=== PATIENT | male | born 1960 | race Caucasian/White ===

== ENCOUNTER 2017-05-21 10:39 | Emergency (ER) | payer MEDICAID, SELFPAY ==
[2017-05-21 10:41] VITALS: BP 118/67; PULSE 85; RESP 16; TEMP 36.4; O2SAT 97; BMI 24.2
--- NOTE | 2017-05-21 11:40 | RAD_ITS ---
STUDY: X-RAY - RIGHT FOOT CLINICAL: Patient thinks there is a foreign body in the foot for a month. TECHNIQUE: 3 view(s) of the foot. COMPARISON: None. FINDINGS: Normal talus, calcaneus, and tarsal bones. Normal visualized subtalar, talonavicular, calcaneocuboid, tarsal and tarsometatarsal articulations. Normal metatarsi. 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 Normal tibial and fibular sesamoid bones. Normal interphalangeal joint of the great toe. Normal phalanges of the great toe. Normal second through fifth metatarsophalangeal joints. Normal interphalangeal joints and phalanges of the lesser toes. There is a thin metallic foreign body at the plantar aspect of the base of the third proximal phalanx. The foreign body measures approximately 1 cm in length. RAD/Foot min 3 Views IMPRESSION: Foreign body. Arthrosis of the first metatarsophalangeal joint. Electronically Signed: Akin Peña MD at 12:13 EST Tel , Service support ,
[2017-05-21] MEDS: Lidocaine/Epi/Tetracaine 50 ML 1 APPLIC TOPICAL (13:57)
[2017-05-21 15:20] VITALS: BP 120/70; PULSE 85; RESP 14; O2SAT 99
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
[2017-05-21 16:46] VITALS: BP 132/70; PULSE 70; RESP 14; O2SAT 99
== END 2017-05-21 16:47 | disposition home or self-care (01) ==
PROVIDERS: Emergency Provider Emergency Medicine
DX: M79.5 Residual foreign body in soft tissue (principal); Z72.0 Tobacco use
CPT/HCPCS: 73630; 99282

== ENCOUNTER 2019-01-20 17:56 | Emergency (ER) | payer MEDICAID, SELFPAY ==
[2019-01-20 18:02] VITALS: BP 140/85; PULSE 102; RESP 12; TEMP 37; O2SAT 92; BMI 20.3
[2019-01-20] MEDS: Naloxone 2 MG/2 ML Syringe 1 MG IV (18:37)
[2019-01-20 19:02] VITALS: BP 144/99; PULSE 81; RESP 10; O2SAT 100
--- NOTE | 2019-01-20 19:02 | ED.VISSUMM ---
- ER Visit Summary Date of Service: 01/20/19 Chief Complaint: Heroin overdose History of Present Illness: The patient is a 58 M who was found unresponsive in the bathroom. He apparently had fallen after using heroin. Noted small abrasion to his forehead. EMS notes he is falling asleep but he has not been hypoxic. Once placed in the room nursing notes he did become hypoxic requiring constant stimulation to stay awake. Patient does admit to using heroin. Physical Examination: Afebrile vital signs stable Gen: Well-nourished well-developed Head: Normocephalic there is a forehead abrasion no bony depression Eyes: Perrl EOMI ENT: TMs clear no rhinorrhea moist mucous membranes Neck: Supple no lymphadenopathy no JVD nontender CVS: Regular rate rhythm no murmurs normal S1-S2 Respiratory: No distress clear to auscultation bilaterally chest nontender Abdomen: Soft nontender nondistended normal bowel sounds no masses Back: Nontender Extremity: Nontender no edema Skin: Normal color no rash Neuro: Lethargic CN II-XII intact normal strength sensation reflexes gait cerebellar Emergency Department Course and Treatment: The patient was requiring constant stimulation to stay awake and would become hypoxic when sleeping he received 1 mg of Narcan. He was quite upset by this and states that he did have a headache when he came in but now he does. He does not wish to have a head CT. He appears to have the capacity to make decision to refuse treatment and will leave AGAINST MEDICAL ADVICE Impression: 1. Heroin overdose 3. Forehead abrasion 3. Left AMA This note was generated with [employer] dictation software. It may contain incorrect words, spelling, and punctuation that were not noted in review of the chart prior to signing Capacity - Capacity Assessment Tool Can the patient make a choice & communicate that choice?: Yes Can the patient understand benefits, risks and alternatives?: Yes Can the patient make a logical, rational choice?: Yes Is the choice the patient makes consistent w/ their values?: Yes Is there an impending, emergent risk to the patient?: No Does the patient have an Advance Directive?: No Is there a Surrogate Available?: No i.e. HCPOA: No i.e. close relative (spouse, child, parent, sibling)?: No ED Disposition - Plan for ED Patient: Disposition: Against Medical Advice Instructions: OVERDOSE, Opiate Referrals: Arian Miles MD [Primary Care Provider] - As soon as possible
--- NOTE | 2019-01-20 19:15 | ED.RN ---
per previous RN pt leaving AMA. signed form at 1909. pt iv removed and monitor removed.
[2019-01-20 19:17] VITALS: BP 144/99; PULSE 20; RESP 18; O2SAT 80
== END 2019-01-20 19:12 | disposition left against medical advice (07) ==
PROVIDERS: Emergency Provider Emergency Medicine; Family Provider Family Medicine; PCP Family Medicine
DX: T40.1X1A Poisoning by heroin, accidental (unintentional), initial encounter (principal); R09.02 Hypoxemia; Y92.9 Unspecified place or not applicable; S00.81XA Abrasion of other part of head, initial encounter; W19.XXXA Unspecified fall, initial encounter; Y93.9 Activity, unspecified; Y99.9 Unspecified external cause status; Z53.29 Procedure and treatment not carried out because of patient's decision for other reasons; Z79.899 Other long term (current) drug therapy
CPT/HCPCS: 96374; 99285; J7030; A4216